=== PATIENT | male | born 1965 | race Caucasian/White ===

== ENCOUNTER 2016-10-18 15:36 | Observation (INO) ==
[2016-10-18] MEDS ORDERED: NS 1,000 ML IV ONE ×2 (15:48→17:09)
[2016-10-18] MEDS ORDERED: SALINE FLUSH 10ml SYRINGE IVF PRN (15:48)
--- NOTE | 2016-10-18 16:12 | Emergency Department Report ---
Fall HPI - General Chief Complaint: Fall Stated Complaint: Fall Time Seen by Provider: 10/18/16 15:46 Source: EMS Mode of arrival: EMS Limitations: altered mental status - History of Present Illness HPI Narrative: 51yo presented to the ED by EMS for a fall injury. Pt had an unwitnessed fall at home. Pt was found with head wound apparently caused by a fall against a large cogwheel. Pt is grossly intoxicated, belligerent, and somnolent. It is unclear whether his sx are due to intoxication, head injury, or both. MD complaint: fall Onset (ago): unknown Fall witnessed: no Place fall occurred: home Loss of consciousness: unsure Context: alcohol use Location of injury: head Review of Systems Limitations: ROS unobtainable due to patient's medical condition Physical Exam - Limitations Limitations: altered mental status - General General appearance: appears intoxicated, lethargic - Normal Exams: Eyes:: Pupils are PERRLA w/ EOMI, No scleral icterus, irritation, or foreign bodies noted ENMT:: No facial trauma, nasal exudates, pharyngeal erythema, or exudates are noted Neck:: Full range of motion, without adenopathy, JVD, bruits or thyromegaly Chest/Respirations:: Clear all antony, with good airflow, and symmetry bilaterally Cardiovascular:: Regular rate and rhythm, without murmur or gallop, Pulses 2+ all extremities, capillary refill, <2 seconds all extremities Abdomen:: Bowel sounds positive, soft, non-tender, non-distended, no hepatosplenomegaly, masses or bruits noted Lymphatic:: No lymphadenopathy, or lymphedema noted Musculoskeletal:: No tenderness, or deformity noted, good range of motion, all extremities Integumentary:: No rashes, hives, or bruising noted, hair and nails, without abnormality - Expanded Head Exam Head exam physical: Present: contusion, hematoma (Posterior). Absent: raccoon eyes, Alberto's sign, CSF rhinorrhea - Neurological Exam Neurological exam: Present: alert, CN II-XII intact, normal gait. Absent: oriented X3, motor sensory deficit - Psychiatric Psychiatric exam: Present: flat affect. Absent: normal affect, normal mood Course - Consultations Consultation #1: Hospitalist: Will admit for observation and detox. Time: 17:15 Vital Signs Temperature 98.4 F 10/18/16 15:40 Pulse Rate 90 10/18/16 15:40 Respiratory Rate 18 10/18/16 15:40 Blood Pressure 136/82 10/18/16 15:40 Pulse Oximetry 96 10/18/16 15:40 Temperature 98.4 F 10/18/16 15:40 Pulse Rate 78 10/18/16 15:58 Respiratory Rate 18 10/18/16 15:40 Blood Pressure 136/82 10/18/16 15:40 Pulse Oximetry 96 10/18/16 15:40 Fall - Differential Diagnosis Likely: syncope (Subdural; subarachnoid), compression fracture, concussion with loss of consciousness - Medical Records Attestation: I reviewed the patient's medical records. - Lab Data Attestation: I reviewed the patient's lab results. Result diagrams: 10/18/16 16:21 10/18/16 16:21 Lab Results 10/18/16 10/18/16 Range/Units 16:21 16:21 WBC 7.3 (4.5-11.0) T/MM3 RBC 4.34 L (4.50-5.90) M/MM3 Hgb 14.4 (13.5-17.5) GM/DL Hct 41.6 (41-53) % MCV 95.9 (80-100) UM3 MCH 33.2 (26-34) UUG MCHC 34.6 (31-37) GM/DL RDW Std Deviation 45.1 (36.9-50.2) FL Plt Count 195 (130-400) T/MM3 MPV 9.7 (9.4-12.4) UM3 Immature Gran % (Auto) 0.4 (0.0-0.5) % Neut % (Auto) 42.6 (33-66) % Lymph % (Auto) 45.9 H (23-45) % Rabun % (Auto) 8.9 (0-9.0) % Eos % (Auto) 1.8 (0-4) % Baso % (Auto) 0.4 (0-2) % Neut # 3.1 (1.8-7.7) T/MM3 Lymph # 3.4 (1-4.8) T/MM3 Rabun # 0.7 (0-0.8) T/MM3 Eos # 0.1 (0-0.5) T/MM3 Baso # 0.0 (0-0.2) T/MM3 Abs Immat Gran (auto) 0.03 (0.00-0.03) T/MM3 Turbidity < 20 (0-20) Sodium 147 H (134-144) MEQ/L Potassium 3.9 (3.6-5) MEQ/L Chloride 112 H (98-107) MEQ/L Carbon Dioxide 20 L (22-30) MEQ/L Anion Gap 15 (5-15) MEQ/L BUN 14.0 (9-20) MG/DL Creatinine 0.8 (0.8-1.5) MG/DL GFR Calculation 103 BUN/Creatinine Ratio 18 (6-26) RATIO Glucose 86 (75-110) MG/DL Calculated Osmolality 282 H (261-280) MOSM/KG Calcium 9.5 (8.4-10.2) MG/DL Total Bilirubin 0.50 (0.20-1.30) MG/DL Icterus Index < 2 (0-7) AST 37 (17-59) U/L ALT 41 (21-72) U/L Alkaline Phosphatase 88 (38-126) U/L Total Protein 8.1 (6.3-8.2) G/DL Albumin 4.9 (3.5-5.0) G/DL Globulin 3.2 (2.4-3.6) G/DL Albumin/Globulin Ratio 1.5 (1.1-2.2) RATIO Specimen Hemolysis < 15 (0-25) Salicylates < 1.0 L (2-20) MG/DL Acetaminophen < 10 L (10-30) UG/ML Alcohol, Quantitative 428 (<10) MG/DL - Radiology Data Attestation: I reviewed the patient's radiology results. Head CT: No CT evidence of acute traumatic intracranial injury. C-spine CT: No acute traumatic abnormality of the cervical spine. Disposition Clinical Impression: Alcohol intoxication Qualifiers: Complication of substance-induced condition: uncomplicated Qualified Code(s): F10.920 - Alcohol use, unspecified with intoxication, uncomplicated Fall Qualifiers: Encounter type: initial encounter Qualified Code(s): W19.XXXA - Unspecified fall, initial encounter Disposition: [facility] [place] Print Language: Maltese Condition: Improved Time of Disposition: 17:16 - Seen By: physician
--- NOTE | 2016-10-18 16:28 | CT Scan Report ---
Indication: Fall PROCEDURE: CT head/brain wo con: Encounter: Initial Comparison: None Technique: Axial CT images through the head were performed without contrast. Iterative Reconstruction dose reducing technique was utilized. FINDINGS: The ventricles are of normal size, shape, and configuration for the patient's age. There is no evidence of acute intracranial hemorrhage, midline displacement, or mass effect. The CT attenuation of the brain parenchyma is normal within the cerebellum, brain stem, and cerebral hemispheres. The tympanic cavities and mastoid air cells are free of appreciable disease. There are no definite fractures of the skull base, calvarium, or visualized portion of the midface. Left parietal scalp hematoma. Significant mucosal disease in the paranasal sinuses. IMPRESSION: No CT evidence of acute traumatic intracranial injury. .
--- NOTE | 2016-10-18 16:39 | CT Scan Report ---
Indication: Fall with head injury PROCEDURE: CT cervical spine wo con: Encounter: Initial Comparison: None Technique: Axial CT images through the cervical spine were performed without contrast. Coronal and sagittal reformatted images were also obtained. Automated Exposure Control and Iterative Reconstruction dose reducing techniques were utilized. FINDINGS: The alignment of the cervical spine is straightened which could be positional or due to muscular spasm/strain. There is no evidence of acute fracture or subluxation of the cervical spine. The facet joints are well aligned with preservation of the intervertebral disk and facet joints. The atlantoaxial articulation, dens, and upper cervical spine demonstrate no subluxation. There is no evidence of significant spinal stenosis, foraminal compromise, or significant disk herniation. The paraspinal soft tissues and spinal canal appear unremarkable. IMPRESSION: No acute traumatic abnormality of the cervical spine. .
[2016-10-18] MEDS ORDERED: HALOPERIDOL 5 MG/ML INJECTION IVP PRN (18:44)
[2016-10-18 18:58] VITALS: BMI 22.1
[2016-10-18] MEDS ORDERED: ONDANSETRON 4 MG/2 ML INJECTION IVP PRN (19:07)
[2016-10-18] MEDS: 1/2 NS with KCL 20mEq 1,000 ML IV SCH (19:15)
--- NOTE | 2016-10-18 19:16 | History & Physical Report ---
History of Present Illness Date: 10/18/16 Chief complaint: Fall, intoxication HPI: 51 y/o white male present to [facility] via EMS secondary to unwitnessed fall. Patient has no recollection of what happened. Reports he had been homeless, but then was able to move in with a friend. Recently, his friend's Dad came into town. Apparently they had been drinking alcohol. Patient reports he has longstanding alcohol problems; has been in treatment in past. Things 'got out of hand.' Evaluated in ED. Intoxicated, belligerent at times. Blood ETOH level elevated at 428. CT brain and C-Spine without fracture. Patient too intoxicated to go home so arrangements for OBS made. Review of Systems ROS unobtainable: due to mental status (Acute intoxication make pt staying on target difficult) [facility] Medical History Updates: Not obtainable due to intoxication Surgical History: Not obtainable due to intoxication Family History Updates: No obtainable due to intoxication. - Social History Alcohol intake: current Last drink: unknown Housing: other (Reports homeless, but then able to move in with a friend) service: Yes ([employer] vet. [employer] Medications Home Medications Medication Instructions Recorded Confirmed Type Unable to Obtain Med List [Unknown 10/18/16 10/18/16 History Meds] Allergies Allergy/AdvReac Type Severity Reaction Status Date / Time Unable to Assess Allergy Verified 10/18/16 17:31 Exam Vital Signs: Temperature 96.9 F 10/18/16 18:41 Pulse Rate 90 10/18/16 18:41 Respiratory Rate 18 10/18/16 18:41 Blood Pressure 157/101 H 10/18/16 18:41 Pulse Oximetry 95 10/18/16 18:41 Oxygen Delivery Method Room Air Height: 1.65 m Weight: 60.2 kg Body Mass Index: 22.1 - Constitutional Present: well nourished, well developed, disheveled, other (Intoxicated. Tearful at times during interview. ) - Routine HEENT Exam Head: Present: normocephalic Eye: Present: EOMI, PERRL ENT: Present: mucous membranes moist - Routine Neck Exam Present: supple, tenderness. Absent: tracheal deviation - Routine Chest/Breast/Axilla Exam Chest wall: Absent: tenderness - Routine Respiratory Exam Present: CTA bilaterally. Absent: respiratory distress, rhonchi, stridor, wheezes, crackles - Routine Cardiovascular Exam Present: RRR, no murmur - Routine Abdominal Exam Present: soft, normoactive bowel sounds, non distended, non tender. Absent: rebound, guarding - Routine Extremities Exam Present: no edema, pulses intact. Absent: cyanosis, clubbing - Routine Skin Exam Present: intact, dry, warm - Routine Neurological Exam Present: CN II-XII intact, vision grossly intact, hearing grossly intact. Absent: motor deficit - Routine Psychiatric Exam Comments: Mood varies. Tearful at times. Restless and agitated with nursing staff. Results - Labs CBC & Chem 7: 10/18/16 16:21 10/18/16 16:21 Labs: Laboratory Tests 10/18/16 16:21 Salicylates < 1.0 L Acetaminophen < 10 L Alcohol, Quantitative 428 Assessment and Plan (1) Alcohol intoxication Current visit: Yes Status: Acute (2) Fall Current visit: Yes Status: Acute (3) Hypernatremia Problem details: POA Current visit: Yes Status: Acute DVT Prophylaxis: SCD's GI Prophylaxis: Protonix Resuscitation Status: Full Code Assessment and Plan: Place pt in OBS for monitoring of fall trauma and potential ETOH withdrawal. Ice to head and neck as needed for pain. Start 1/2NS with 20mEq KCL at 100 cc/hr for hydration. Thiamine and folic acid IV due to chronic ETOH use. IV Protonix to help decrease his suspected ETOH gastritis. Zofran prn nausea. Lorazepam and Haldol as needed. SCD for DVT prevention. Recheck BMP, CBC, and ETOH level in am. - Time spent with patient greater than 35 minutes Sepsis Assessment - Evaluation Sepsis screening result: No Definite Risk Hospital Course Summary Disclaimer: The visit summary below is not to be considered part of the above Progress Note. Hospital Course: 10/18/[address] pt in OBS for monitoring of fall trauma and potential ETOH withdrawal. Ice to head and neck as needed for pain. Start 1/2NS with 20mEq KCL at 100 cc/hr for hydration. Thiamine and folic acid IV due to chronic ETOH use. IV Protonix to help decrease his suspected ETOH gastritis. Zofran prn nausea. Lorazepam and Haldol as needed. SCD for DVT prevention. Recheck BMP, CBC, and ETOH level in am.
[2016-10-18] MEDS: THIAMINE 200mg/2ml INJECTION IVP SCH (20:02)
[2016-10-18] MEDS: FOLIC ACID 5 MG/ML INJECTION IVP SCH (20:07)
[2016-10-18] MEDS: PANTOPRAZOLE 40 MG INJECTION IVP SCH (20:11)
[2016-10-18] MEDS: ACETAMINOPHEN 325 MG TABLET PO PRN (20:57)
[2016-10-19 00:59] VITALS: O2SAT 98
[2016-10-19] MEDS: 1/2 NS with KCL 20mEq 1,000 ML IV SCH (05:31)
[2016-10-19 07:40] VITALS: BP 144/95; PULSE 80; RESP 16; TEMP 97.9
[2016-10-19] MEDS: ACETAMINOPHEN 325 MG TABLET PO PRN (08:30)
[2016-10-19] MEDS: PANTOPRAZOLE 40 MG INJECTION IVP SCH (08:30)
[2016-10-19] MEDS: FOLIC ACID 5 MG/ML INJECTION IVP SCH (08:32)
[2016-10-19] MEDS: THIAMINE 200mg/2ml INJECTION IVP SCH (08:35)
--- NOTE | 2016-10-19 10:04 | Discharge Instructions ---
Discharge Plan - Med Rec/Dispo Additional Instructions: Follow up with Dr. Salvatore Martinez your PCP in [place], or establish at [facility] with a physician there in the next 1-2 weeks Prescriptions: New Multivitamin [One-A-Day Essential] 1 each PO DAILY #30 tablet Discharge Instructions/Outpatient Orders: Final Provider Discharge Instructions Location: Determined By Patient - Disposition 01 Discharged Home, Self-Care
--- NOTE | 2016-10-19 19:35 | Discharge Summary ---
Discharge Information Date of admission: 10/18/16 18:16 Attending Physician: Zechariah Dean MD Consults: 10/18/16 19:27 Case Management Consult [CONS] Routine Reason For Exam: Chronic ETOH use - Discharge Diagnosis (1) Alcohol intoxication Qualifiers: Complication of substance-induced condition: uncomplicated Qualified Code(s ): F10.920 - Alcohol use, unspecified with intoxication, uncomplicated Status: Acute (2) Fall Qualifiers: Encounter type: initial encounter Qualified Code(s): W19.XXXA - Unspecified fall, initial encounter Status: Acute (3) Hypernatremia Problem Details: POA Status: Acute - Laboratory Labs: 10/19/16 05:13 10/19/16 05:13 Urine drug screen positive for benzodiazepine. Acetaminophen level and salicylate levels were not elevated. Blood alcohol level was 428 on admission and 31 on the morning of discharge Magnesium was borderline low at 1.5 normal being 1.6 - Radiology Radiology: CT head and CT C-spine showed no acute abnormalities Chest x-ray showed no obvious abnormalities. History of Present Illness HPI: 51 y/o white male present to [facility] via EMS secondary to unwitnessed fall. Patient has no recollection of what happened. Reports he had been homeless, but then was able to move in with a friend. Recently, his friend's Dad came into town. Apparently they had been drinking alcohol. Patient reports he has longstanding alcohol problems; has been in treatment in past. Things 'got out of hand.' Evaluated in ED. Intoxicated, belligerent at times. Blood ETOH level elevated at 428. CT brain and C-Spine without fracture. Patient too intoxicated to go home so arrangements for OBS made. Objective Vital signs: Temperature 97.9 F 10/19/16 07:39 Pulse Rate 80 10/19/16 07:39 Respiratory Rate 16 10/19/16 07:39 Blood Pressure 144/95 H 10/19/16 07:39 Pulse Oximetry 98 10/19/16 07:39 Oxygen Delivery Method Room Air Weight: 60.9 kg Hospital Course This is a general summary of the patient's hospital course. For more details refer to the complete medical record. Hospital course: 10/18/[address] in OBS for monitoring of fall trauma and potential ETOH withdrawal. Ice to head and neck as needed for pain. Start 1/2NS with 20mEq KCL at 100 cc/hr for hydration. Thiamine and folic acid IV due to chronic ETOH use. IV Protonix to help decrease his suspected ETOH gastritis. Zofran prn nausea. Lorazepam and Haldol as needed. SCD for DVT prevention. Recheck BMP, CBC, and ETOH level in am. 10/19/2016 I was called this morning by the nurse and notified that the patient's ride was here and he wanted to be discharged. The patient stated that he was feeling well. He denied any confusion. He denied any history of DTs when he has quit drinking in the past. He denied any history of seizures. He denies any history of confusion when he would quit drinking. He states he is currently in an outpatient program at [facility] for help with addiction. He has some mild headache where he hit his head yesterday. He denies any neck pain or any pain elsewhere. He strongly desires to go home. Blood alcohol level has improved to 31. Vital signs are stable. Lab work looks okay other than mildly low magnesium of 1.5. On exam, the patient is alert and oriented 3 and in no acute distress. He has no tremulousness. He is a good historian and does not appear confused or agitated. HEENT reveals sclerae to be anicteric, pupils are equal round and reactive, oropharynx is moist. He has a small laceration on his scalp which did not require sutures or lorin. Neck is supple. Chest is clear to auscultation. Cardiovascular reveals a regular rate and rhythm without murmur. Abdomen is soft and nontender. Extremities are free of edema. Skin is warm and dry and without rashes. Neurologic reveals the patient to be alert and oriented 3. Moves all 4 extremities without difficulties. No tremulousness. Impression Acute alcohol intoxication-resolved Alcohol addiction Scalp laceration which did not require suturing or lorin. CT head and C-spine were okay. Borderline low magnesium likely secondary to chronic alcohol use. Plan Discharge to home with friend. Recommend follow-up with his primary care physician Dr. Salvatore Martinez or [facility]. Recommend multivitamin once daily. He states he drinks and electrolyte drink with magnesium and he will take that daily. I did write discharge instructions, but the patient's nurse stated that he took out his IV and left before she could give him his discharge paperwork. Discharge Plan - [facility] Rec/Dispo [place] Instructions: Alcohol Intoxication (DC) Additional Instructions: Follow up with Dr. Salvatore Martinez your PCP in [place], or establish at [facility] with a physician there in the next 1-2 weeks Prescriptions: New Multivitamin [One-A-Day Essential] 1 each PO DAILY #30 tablet Discharge Instructions/Outpatient Orders: Final Provider Discharge Instructions Location: Determined By Patient - Disposition 01 Discharged Home, Self-Care
--- NOTE | 2016-10-20 11:36 | XRay Report ---
Indication: Clearance PROCEDURE: XR chest 1V: Encounter: Initial Comparison: None FINDINGS: The lungs are clear. There is no abnormal airspace opacity, pleural effusion or pneumothorax identified. The heart size, pulmonary vasculature and mediastinum are within normal limits. No significant skeletal abnormality is seen. IMPRESSION: No acute cardiopulmonary abnormality. .
== END 2016-10-19 10:17 | disposition home or self-care (01) ==
LOC: MED 15:36 → ED 15:36 → MED 17:55
PROVIDERS: ADMIT Hospitalist; ATTEND Hospitalist